=== PATIENT | female | born 1960 | race American Indian/Alaskan Native ===

== ENCOUNTER 2017-10-10 06:54 | Day surgery (SDC) | payer BC ==
--- NOTE | 2017-10-08 12:54 | Anesthesia Consultation ---
Anesthesia Consult and Med Hx Date of service: 10/08/17 - Airway Anesthetic Teeth Evaluation: Good ROM Head & Neck: Adequate Mental/Hyoid Distance: Adequate Mallampati Class: Class II Intubation Access Assessment: Probably Good - Pulmonary Exam CTA: Yes - Cardiac Exam Cardiac Exam: RRR - Pre-Operative Health Status ASA Pre-Surgery Classification: ASA3 Proposed Anesthetic Plan: General - Pulmonary Hx Smoking: No Hx Asthma: No SOB: Yes COPD: No Hx Sleep Apnea: No - Cardiovascular System Hx Hypertension: Yes - Central Nervous System Hx Seizures: No CVA: No - Gastrointestinal Hx Gastroesophageal Reflux Disease: No - Endocrine Hx Renal Disease: No Hx Liver Disease: No Hx Non-Insulin Dependent Diabetes: Yes Hx Thyroid Disease: No - Other Systems Hx Cancer: No Hx Obesity: Yes
--- NOTE | 2017-10-09 18:56 | History and Physical Report ---
History of Present Illness Date of examination: 10/08/17 Chief complaint: Postmenopausal Bleeding, Endometrial Hyperplasia History of present illness: Pt is a 57 year old -[place] female presents for surgical evaluation of postmenopausal bleeding and endometrial hyperplasia with comment of focal endometrial glands with crowded complexed architecture present, favor metaplastic changes on in-office endometrial biopsy on 09/10/17. Past History Past Medical History: hypertension, diabetes (osteoarthritis, morbid obesity ), other (Morbid Obesity) Past Surgical History: no surgical history [employer] History: fibroids Family/Genetic History: diabetes, hypertension Social history: no significant social history Medications and Allergies Allergies Allergy/AdvReac Type Severity Reaction Status Date / Time No Known Allergies Allergy Verified 10/09/17 11:16 Home Medications Medication Instructions Recorded Confirmed Last Taken Type Jecbh-Ogkwu-Cbrf 5-160-25 mg 1 cap PO DAILY 10/09/17 10/09/17 Unknown History Cholecalciferol (Vitamin D3) 1 cap PO DAILY 10/09/17 10/09/17 Unknown History [Vitamin D3] Ibuprofen/Famotidine [Duexis 1 tab PO PRN PRN 10/09/17 10/09/17 Unknown History 800-26.6 mg Tablet] Latanoprost 0.005% 1 drop OU DAILY 10/09/17 10/09/17 Unknown History Metformin HCl 500 mg PO DAILY 10/09/17 10/09/17 Unknown History Active Meds: Active Medications Sodium Chloride (Nacl 0.9% 1000 Ml) 1,000 mls @ 100 mls/hr IV DIRECT FOUZIA Midazolam HCl (Versed) 2 mg IV PREOP NR Stop: 10/10/17 23:59 Review of Systems All systems: negative - Vital Signs Vital signs: Vital Signs Temp Pulse Resp BP 98.9 F 84 20 140/90 10/08/17 12:40 10/08/17 12:40 10/08/17 12:40 10/08/17 12:40 Temp Pulse Resp BP Pulse Ox 98.9 F 84 20 140/90 10/08/17 12:40 10/08/17 12:40 10/08/17 12:40 10/08/17 12:40 - Physical Exam Breasts: Positive: deferred Cardiovascular: Regular rate Lungs: Positive: Clear to auscultation Abdomen: Positive: soft (obese) Uterus: Positive: other (difficult to assess due to habitus) Results All other labs normal. Ultrasound: other (Uterus 14x8.6x8.6 cm. Lobular with multiple fibroids. Largest in upper uterine segment 3.4x3.0x2.9 cm. Lower anterior segment measuring 3.1x2.9x2.4 cm Fundal region contains 3.0x2.5x2.7 cm fibroifd. Posterior upper uterine segment fibroid 1.8 cm. Ovaries could not be seen. Endometrium could not be evaluated.) Assessment and Plan A: Postmenopausal Bleeding Simple Endometrial Hyperplasia without atypia on in-office biopsy Morbid Obesity Hypertension Diabetes, Type II Osteoarthritis of the knees P: Proceed with hysteroscopy, Myosure endometrial sampling, dilation and curettage, possible Myosure hysteroscopic myomectomy and other indicated procedures.
[2017-10-10] MEDS ORDERED: ANCEF/STERILE WATER 2 GM/20 ML 2 GM/20 ML SYRINGE IV NR (07:00)
[2017-10-10] MEDS ORDERED: NACL 0.9% 1000 ML 1,000 ML IV SCH (07:00)
[2017-10-10] MEDS ORDERED: VERSED IV NR (07:00)
[2017-10-10] MEDS ORDERED: DIPRIVAN 10 MG/ML IV ONE (07:02)
[2017-10-10] MEDS ORDERED: XYLOCAINE MPF 2% ONE (07:03)
[2017-10-10] MEDS ORDERED: DILAUDID ONE (07:03)
[2017-10-10] MEDS ORDERED: NACL BACTERIOSTATIC INFILTRATI ONE (07:41)
[2017-10-10 08:28] LABS: Hemoglobin 12.3 gm/dl (10.1-14.3); Mean Corpuscular HGB Conc 33 % (30-34); Mean Corpuscular Hemoglobin 26 pg (28-32); Mean Corpuscular Volume 79 fl (79-97); Platelet Count 311 K/mm3 (140-440); Red Blood Count 4.66 M/mm3 (3.65-5.03); Red Cell Distribution Width 15.7 % (13.2-15.2)
[2017-10-10] MEDS ORDERED: ZOFRAN ONE (09:20)
[2017-10-10] MEDS ORDERED: NACL 0.9% IR ONE (09:33)
[2017-10-10] MEDS ORDERED: DECADRON ONE (09:34)
--- NOTE | 2017-10-10 10:28 | Operative Report ---
Operative Report Operative Report: Date of procedure: October 10, 2017 Preoperative diagnosis: 1) Postmenopausal Bleeding 2) Endometrial hyperplasia without atypia 3) Fibroid Uterus 4) Morbid Obesity BMI 50 Postoperative diagnosis: Same 5) Endometrial Polyps Procedure: 1)Hysteroscopy 2)Dilation and Curettage 3)Myosure endometrial sampling with polypectomy Surgeon: Kitty Guadarrama M.D. Findings: 1) Enlarged fibroid uterus 2) Submucosal fibroid ~3 cm 3) Multiple endometrial polyps Anesthesia: General with LMA Estimated blood loss: 25 mL IV fluid: 500 mL Urine output: 200 mL, prior to the procedure Specimens: endometrial curettings to pathology Drains: None Complications: None Disposition: Stable to PACU Indications for procedure: The patient is a 57 year old -N[place]alese female with known uterine fibroids who presents for surgical evaluation of postmenopausal bleeding and simple endometrial hyperplasia without atypia with comment of focal endometrial glands with crowded complex architecture present, favor metaplastic changes on in-office endometrial biopsy on 09/10/17. Operation in detail: After the risks, benefits, alternatives and complications of the procedure were explained to the patient, she gave informed consent for the procedure. She was subsequently taken to the operating room and placed in the dorsal supine position. SCDs were noted to be in place and functioning. General anesthesia was then induced without difficulty. An exam under anesthesia was performed revealing an enlarged uterus approximately 14 wk size. The patient was then placed in the dorsal lithotomy position and prepped and draped in normal sterile fashion. A timeout was performed. The bladder was then catheterized and drained of 200 mL of clear urine. An open sided speculum was then placed into the vagina for adequate visualization of the cervix. The anterior lip of the cervix was then grasped with a tenaculum for traction. The cervix was the serially dilated with Cagle dilators to accomodate the hysteroscope. At this time a hysteroscope was introduced to visualize the endometrial cavity which revealed multiple endometrial polyps. A Myosure device was then used to perform endometrial sampling and polypectomies. All instruments were removed atraumatically from the uterus. A sharp endometrial curettage was then performed and all the curettings were sent to pathology. At this time the single-tooth tenaculum was removed from the cervix. Hemostasis was noted. All instruments were removed from the vagina atraumatically and the procedure was ended. The patient was then placed into the dorsal supine position and extubated without difficulty. She was subsequently taken to the PACU in stable condition. She tolerated the procedure well. All counts were correct 2.
--- NOTE | 2017-10-10 10:31 | Short Stay Summary ---
Short Stay Documentation Date of service: 10/10/17 - History H&P: dictated Social history: no significant social history - Allergies and Medications Current Medications: Allergies No Known Allergies Allergy (Verified 10/09/17 11:16) Home Medications Medication Instructions Recorded Confirmed Last Taken Type Urmeo-Qnptb-Fdqs 5-160-25 mg 1 cap PO DAILY 10/09/17 10/10/17 10/10/17 06:30 History Cholecalciferol (Vitamin D3) 1 cap PO DAILY 10/09/17 10/10/17 10/07/17 History [Vitamin D3] Ibuprofen/Famotidine [Duexis 1 tab PO PRN PRN 10/09/17 10/10/17 6 Months Ago History 800-26.6 mg Tablet] ~04/12/17 Latanoprost 0.005% 1 drop OU DAILY 10/09/17 10/10/17 10/07/17 History Metformin HCl 500 mg PO DAILY 10/09/17 10/10/17 10/09/17 History Aspirin [Aspir-Low] 81 mg PO DAILY 10/10/17 10/10/17 10/08/17 History Active Medications Sodium Chloride (Nacl 0.9% 1000 Ml) 1,000 mls @ 100 mls/hr IV DIRECT FOUZIA Last Admin: 10/10/17 07:55 Dose: 100 mls/hr Cefazolin Sodium (Ancef/Sterile Water 2 Gm/20 Ml) 2 gm in 20 mls @ 80 mls/hr IV PREOP NR; Protocol Stop: 10/10/17 23:59 Midazolam HCl (Versed) 2 mg IV PREOP NR Stop: 10/10/17 23:59 Last Admin: 10/10/17 08:49 Dose: 2 mg - Physical exam Breasts: deferred - Brief post op/procedure progress note Date of procedure: 10/10/17 Pre-op diagnosis: Postmenopausal bleeding, Endometrial Hyperplasia, Fibroid Uterus Post-op diagnosis: other (Same, Endometrial Polyp) Procedure: Hysteroscopy Myosure endometrial sampling Dilation and Curettage Anesthesia: GETA (with LMA ) Findings: 1) Enlarged fibroid uterus 2) Submucosal fibroid ~3 cm 3) Multiple endometrial polyps Surgeon: ARIAN PANTOJA Estimated blood loss: minimal (25 mL) Pathology: list (endometrial curettings, endometrial polyps) Specimen disposition: to lab Condition: stable - Hospital course Hospital course: Pt underwent hysteroscopy, dilation and curettage, Myosure endometrial sampling with polypectomy which she tolerated well. She was observed in the PACU until she met discharge criteria. She will follow up in the office in 1 week for pathology results. - Disposition Condition at discharge: Stable Disposition: DC- TO HOME OR SELFCARE - Discharge Diagnoses (1) Postmenopausal bleeding Status: Acute (2) Morbid obesity Status: Acute (3) Diabetes Status: Acute Qualifiers: Diabetes mellitus type: type 2 Diabetes mellitus mcfp insulin use: unspecified mcfp insulin use status Diabetes mellitus complication status : with unspecified complications Qualified Code(s): E11.8 - Type 2 diabetes mellitus with unspecified complications (4) HTN (hypertension) Status: Acute Qualifiers: Hypertension type: unspecified Qualified Code(s): I10 - Essential (primary ) hypertension (5) Fibroid uterus Status: Acute Qualifiers: Uterine leiomyoma location: unspecified location Qualified Code(s): D25.9 - Leiomyoma of uterus, unspecified (6) Endometrial polyp Status: Acute Short Stay Discharge Plan Activity: other (Nothing in vagina x 4 weeks ) Weight Bearing Status: Full Weight Bearing Diet: regular Follow up with: JUNIOR BROWNING MD [Primary Care Provider] - 7 Days ARIAN PANTOJA MD [Staff Physician] - 7 Days Prescriptions: Ibuprofen [Motrin] 600 mg PO Q6H PRN #30 tablet PRN Reason: Pain oxyCODONE /ACETAMINOPHEN [Percocet 5/325] 1 tab PO Q6HR PRN #30 tablet PRN Reason: Pain
[2017-10-10 11:26] VITALS: BP 120/74
--- NOTE | 2017-10-10 11:34 | Anesthesia Day of Surgery ---
Anesthesia Day of Surgery - Day of Surgery Patient Examined: Yes Patient H&P Reviewed: Yes Patient is NPO: Yes
--- NOTE | 2017-10-10 11:35 | Anesthesia Consultation ---
Anesthesia Consult and Med Hx Date of service: 10/10/17 - Airway Anesthetic Teeth Evaluation: Good ROM Head & Neck: Adequate Mental/Hyoid Distance: Adequate Mallampati Class: Class II Intubation Access Assessment: Probably Good - Pulmonary Exam CTA: Yes - Cardiac Exam Cardiac Exam: RRR - Pre-Operative Health Status ASA Pre-Surgery Classification: ASA3 Proposed Anesthetic Plan: General - Pulmonary Hx Smoking: No Hx Asthma: No SOB: Yes COPD: No Hx Sleep Apnea: No - Cardiovascular System Hx Hypertension: Yes - Central Nervous System Hx Psychiatric Problems: No - Gastrointestinal Hx Gastroesophageal Reflux Disease: No - Endocrine Hx Renal Disease: No Hx Liver Disease: No Hx Non-Insulin Dependent Diabetes: Yes Hx Thyroid Disease: No - Other Systems Hx Cancer: No Hx Obesity: Yes
--- NOTE | 2017-10-10 11:36 | Post Anesthesia Evaluation ---
- Post Anesthesia Evaluation Patient Participated: Yes Airway Patent: Yes Stable Respiratory Function: Yes Nausea/Vomiting: No Temp > 96.8F: Yes Pain Manageable: Yes Adequeate Hydration: Yes Anesthesia Complications: No
== END 2017-10-10 11:46 | disposition home or self-care (01) ==
LOC: OR 06:54
PROVIDERS: ATTEND Obstetrics & Gynecology
DX: N84.0 Polyp of corpus uteri (principal); D25.0 Submucous leiomyoma of uterus; N85.00 Endometrial hyperplasia, unspecified; E66.01 Morbid (severe) obesity due to excess calories; I10 Essential (primary) hypertension; E66.9 Obesity, unspecified; E11.9 Type 2 diabetes mellitus without complications; M17.0 Bilateral primary osteoarthritis of knee; Z68.43 Body mass index [BMI] 50.0-59.9, adult
CPT/HCPCS: 36415; 58558; 81025; 82962; 85027; 88305; A4217; C1782; J0690; J1100; J1170; J2250; J2405; J2704; J7030

== ENCOUNTER 2019-04-29 07:56 | Day surgery (SDC) | payer BC ==
[~2019-04-29 07:56] MED LIST: SODIUM CHLORIDE 0.9% 1000 ML 1,000 ML IV SCH
--- NOTE | 2019-04-29 08:40 | Anesthesia Consultation ---
Anesthesia Consult and Med Hx Date of service: 04/29/19 - Airway Anesthetic Teeth Evaluation: Dentures ROM Head & Neck: Adequate Mental/Hyoid Distance: Adequate Mallampati Class: Class I Intubation Access Assessment: Good - Pulmonary Exam CTA: Yes - Cardiac Exam Cardiac Exam: RRR - Pre-Operative Health Status ASA Pre-Surgery Classification: ASA3 Proposed Anesthetic Plan: MAC - Pulmonary Hx Smoking: No Hx Asthma: No SOB: Yes COPD: No Hx Sleep Apnea: No - Cardiovascular System Hx Hypertension: Yes - Central Nervous System Hx Psychiatric Problems: No - Gastrointestinal Hx Gastroesophageal Reflux Disease: No - Endocrine Hx Renal Disease: No Hx Liver Disease: No Hx Non-Insulin Dependent Diabetes: Yes Hx Thyroid Disease: No - Other Systems Hx Cancer: No Hx Obesity: Yes
--- NOTE | 2019-04-29 08:40 | Anesthesia Day of Surgery ---
Anesthesia Day of Surgery - Day of Surgery Patient Examined: Yes Patient H&P Reviewed: Yes Patient is NPO: Yes Beta Blockers: No
[2019-04-29] MEDS ORDERED: PROPOFOL 200 MG/20 ML VIAL IV ONE (08:45)
[2019-04-29] MEDS ORDERED: WATER FOR IRRIG STERILE 250 ML BOTTLE IR ONE (08:54)
[2019-04-29] MEDS ORDERED: WATER FOR IRRIG STERILE 1,000 ML BOTTLE ONE (08:54)
--- NOTE | 2019-04-29 09:19 | Short Stay Summary ---
Short Stay Documentation Date of service: 04/29/19 Narrative H&P: The patient presents for surveillance colonoscopy for history of colon polyps. Last study was 5 years ago. - History Past Medical History: arthritis, diabetes, hypertension, other (Morbid obesity) Past Surgical History: hysterectomy Social history: no significant social history - Allergies and Medications Current Medications: Allergies No Known Allergies Allergy (Verified 10/09/17 11:16) Home Medications Medication Instructions Recorded Confirmed Last Taken Type Lyfyb-Dxwua-Rkmm 5-160-25 mg 1 cap PO DAILY 10/09/17 04/29/19 04/29/19 History Latanoprost 0.005% 1 drop OU DAILY 10/09/17 04/29/19 04/28/19 History Metformin HCl 500 mg PO DAILY 10/09/17 04/29/19 04/28/19 History Active Medications Sodium Chloride (Nacl 0.9% 1000 Ml) 1,000 mls @ 50 mls/hr IV DIRECT FOUZIA - Physical exam General appearance: no acute distress, well-nourished, obese Integumentary: no rash, no growths, no abnormal pigmentation HEENT: Atraumatic, PERRLA, EOMI, Mucous membr. moist/pink Lungs: Clear to auscultation, Normal air movement Breasts: deferred Heart: Regular rate, Normal S1, Normal S2, No murmurs Gastrointestinal: normoactive bowel sounds, no tenderness, no distended, no masses, no organomegaly, obese Female Genitourinary: deferred Rectal Exam: normal exam-external/orifice, no mass Extremities: no ischemia, pulses intact, pulses symmetrical, No edema, normal temperature, normal color, Full ROM Neurological: Normal gait, Normal speech, Strength at 5/5 X4 ext, Normal tone, Sensation intact, Cranial nerves 3-12 NL - Brief post op/procedure progress note Date of procedure: 04/29/19 Procedure: see dictate report Findings: see dictated report Estimated blood loss: none Pathology: none Condition: stable - Disposition Condition at discharge: Good Disposition: DC-01 TO HOME OR SELFCARE - Discharge Diagnoses (1) History of colon polyps Status: Acute Short Stay Discharge Plan Activity: other (no driving for 24 hours) Weight Bearing Status: Weight Bear as Tolerated Diet: diabetic Follow up with: JUNIOR BROWNING MD [Primary Care Provider] - 7 Days
--- NOTE | 2019-04-29 09:31 | Operative Report ---
Operative Report Operative Report: Date of procedure: 04/29/2019 Preprocedure diagnosis: History of colon polyps, last study 5 years ago. Post procedure diagnosis: Left colon diverticulosis Procedure: Colonoscopy to the cecum Endoscopist: Dr. Marcial Anesthesia: Monitored anesthesia care per anesthesia department Estimated blood loss: 0 Medications: Monitored anesthesia care. See separate report by anesthesia for details. After careful discussion of the nature and purpose of the procedure as well as details of the technique risks benefits and alternatives the patient gave consent. Please see recent history and physical from the office. The patient was placed in the left lateral decubitus position and medicated per anesthesia. A rectal exam was performed sphincter tone was normal there were no masses palpable. The Olympus colonoscope was passed transanally and advanced under continuous direct vision without difficulty to the cecum. The colon was well prepared. The cecum was normal. The ascending colon was normal and on forward and retroflexed views. The transverse colon normal. There were scattered diverticula throughout the descending and sigmoid colon. The rectum was normal on forward and retroflexed views. The procedure was well-tolerated overall and the patient was observed in recovery. Conclusions: Moderate diverticulosis of the left colon. No recurrent polyps. Plan: Repeat colonoscopy in 5 years. Signed electronically: Andrew Marcial M.D.
[2019-04-29 09:52] VITALS: BP 133/79
--- NOTE | 2019-04-29 15:59 | Post Anesthesia Evaluation ---
- Post Anesthesia Evaluation Patient Participated: Yes Airway Patent: Yes Stable Respiratory Function: Yes Nausea/Vomiting: No Temp > 96.8F: Yes Pain Manageable: Yes Adequeate Hydration: Yes Anesthesia Complications: No Block Receding Appropriately: Not Applicable Patient on Ventilator: No
== END 2019-04-29 07:57 | disposition home or self-care (01) ==
LOC: GIO 07:56
PROVIDERS: ATTEND Internal Medicine Gastroenterology
DX: Z12.11 Encounter for screening for malignant neoplasm of colon (principal); K57.30 Diverticulosis of large intestine without perforation or abscess without bleeding; E66.01 Morbid (severe) obesity due to excess calories; E11.39 Type 2 diabetes mellitus with other diabetic ophthalmic complication; H40.9 Unspecified glaucoma; M19.90 Unspecified osteoarthritis, unspecified site; I10 Essential (primary) hypertension; Z86.010 Personal history of colon polyps; Z79.84 Long term (current) use of oral hypoglycemic drugs; Z79.899 Other long term (current) drug therapy; Z68.43 Body mass index [BMI] 50.0-59.9, adult; Z90.710 Acquired absence of both cervix and uterus; Z98.890 Other specified postprocedural states
CPT/HCPCS: 45378; 82962; J2704; J7030